=== PATIENT | female | born 1995 ===

== ENCOUNTER 2018-06-03 15:29 | Outpatient (CLI) | payer BC ==
--- NOTE | 2018-06-03 17:22 | ULT ---
LEFT BREAST ULTRASOUND RIGHT BREAST ULTRASOUND: Date: 06/03/18 HISTORY: Palpable abnormalities in both breasts. FINDINGS: Sonographic evaluation of the region of palpable concern at the 8 o'clock position of the right breas t demonstrates a well circumscribed, nonshadowing, solid mass measuring 2.2 x 1.4 x 1.7 cm. A similar mass is seen at the 9 o'clock position measuring 1.3 x 0.8 x 1.4 cm. A similar mass is also seen at the region of palpable concern at the 12 o'clock position of the left breast measuring 1.6 x 1.3 x 0.9 cm. 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 IMPRESSION: BI-RADS Category 3 - Probably benign findings. Six month follow-up bilateral ultrasound is recommende d. The facility will notify patient of need for additional imaging services. POS: OFF
== END 2018-06-03 15:30 | disposition home or self-care (01) ==
LOC: BICULT 15:29
PROVIDERS: ATTEND Obstetrics & Gynecology
DX: N63.20 Unspecified lump in the left breast, unspecified quadrant (principal); N63.10 Unspecified lump in the right breast, unspecified quadrant